=== PATIENT | male | born 1975 | race Caucasian/White ===

== ENCOUNTER 2019-05-02 12:19 | Emergency (ER) | payer OTHER ==
[~2019-05-02] VITALS: Ht 162.6 cm; Wt 84.0 kg
[~2019-05-02 12:19] MED LIST: ACET325T14 PO; AMOX-367 PO; ASPI81TA45 PO; ATOR40TA78 PO; CLOP75TA PO; METO50TA82 PO; OXYC5TAB3 PO
--- NOTE | 2019-05-02 12:50 | NUR ---
RECEIVED BEDSIDE REPROT FROM MAIA CESPEDES
--- NOTE | 2019-05-02 12:50 | NUR ---
43 Y/O MALE BIB AMBULANCE WITH C/O CP. "THE PAIN STARTED AT ABOUT 0930 MY PAIN WAS 1/10. IT WAS RIGHT IN THE CENTER (PT POINTS TO EPIGASTRIC AREA). WHEN I STARTED ON THE TREADMILL AT THE [facility], MY PAIN WENT TO A 4/10. THAT WAS AT 1110. RIGHT NOW MY PAIN IS 1/10. I GOT SOME ASA FROM THE [facility]." PT PLACED ON CONT PULSE OX,NIBP, CPO. NO C/O N/V/D, TRAUMA, SYNCOPE, SOB. HX DOUBLE BYPASS 02/15
--- NOTE | 2019-05-02 12:53 | NUR ---
PER PT "I'VE ALSO HAD A LOT OF OTHER STRESS THIS PAST WEEK." EDPA BEDSIDE.
[2019-05-02 13:27] LABS: BASOPHILS # (AUTO) 0.05 x10^3/uL (0-0.1); BASOPHILS % (AUTO) 1 % (0-1); EOSINOPHILS # (AUTO) 0.13 x10^3/uL (0-0.4); EOSINOPHILS % (AUTO) 2 % (1-7); LYMPHOCYTES # (AUTO) 0.78 x10^3/uL (1-3.4); LYMPHOCYTES % (AUTO) 11 % (22-44); MD NO; MEAN CORPUSCULAR HGB CONC 32.5 g/dL (33.2-36.2); MEAN CORPUSCULAR VOLUME 82.9 fL (81-97); MEAN PLATELET VOLUME 10.1 fL (7.4-10.4); MONOCYTES % (AUTO) 7 % (2-9); NEUTROPHILS # (AUTO) 5.68 x10^3/uL (1.8-6.8); NEUTROPHILS % (AUTO) 80 % (42-75); PLATELET COUNT 244 x10^3/uL (130-400); RED BLOOD COUNT 5.65 x10^6/uL (4.38-5.82)
[2019-05-02 13:35] LABS: ALANINE AMINOTRANSFERASE 36 U/L (12-78); ALBUMIN 3.7 g/dL (3.4-5.0); ANION GAP 5 mmol/L (5-15); CALCIUM 9.2 mg/dL (8.5-10.1); CHLORIDE 108 mmol/L (98-107); CREATININE 0.93 mg/dL (0.7-1.3)
[2019-05-02 13:40] LABS: ALKALINE PHOSPHATASE 86 U/L (45-117); BILIRUBIN,TOTAL 0.3 mg/dL (0.2-1.0); TOTAL PROTEIN 7.4 g/dL (6.4-8.2); TROPONIN I < 0.015 ng/mL (0.000-0.045)
--- NOTE | 2019-05-02 15:05 | NUR ---
LATE ENTRY FOR 1400 PT RESTING ON GURNEY. NO ACUTE DISTRESS NOTED. NO NEEDS REQUESTED AT THIS TIME. BEDSIDE.
[2019-05-02 15:09] VITALS: BP 128/76
--- NOTE | 2019-05-02 15:09 | NUR ---
Patient/Caregiver given discharge instructions and they have confirmed that they understand the instructions. Patient ambulatory with steady gait. PT LEFT WITH ALL PERSONAL BELONGINGS
== END 2019-05-02 15:10 | disposition home or self-care (01) ==
LOC: ED 14:22
DX: R07.89 Other chest pain (principal); I10 Essential (primary) hypertension; E78.5 Hyperlipidemia, unspecified
CPT/HCPCS: 36415; 71045; 80053; 84484; 85025; 93005; 99284

== ENCOUNTER → 2019-05-20 | Outpatient (CLI) | payer OTHER ==
[~2019-05-20] MED LIST changes: +LIDOCAINE-MPF 1%, 5ML ONE
== END | disposition home or self-care (01) ==
LOC: RAD 10:49
PROVIDERS: ATTEND Surgery
DX: E04.1 Nontoxic single thyroid nodule (principal)
CPT/HCPCS: 10005; 88172; 88173

== ENCOUNTER 2019-09-19 12:38 | Outpatient (CLI) | payer OTHER ==
[~2019-09-19 12:38] MED LIST changes: -LIDOCAINE-MPF 1%, 5ML ONE
== END 2019-09-19 23:59 | disposition home or self-care (01) ==
LOC: CFH 12:38
PROVIDERS: ATTEND Nurse Practitioner Family
DX: R07.9 Chest pain, unspecified (principal)
CPT/HCPCS: 78452; 93017; A9502

== ENCOUNTER → 2021-03-21 | Outpatient (CLI) | payer OTHER ==
[~2021-03-21] MED LIST changes: -OXYC5TAB3 PO; +OXYC5TAB98 PO
== END | disposition home or self-care (01) ==
LOC: CFH 15:48
PROVIDERS: ATTEND Internal Medicine Cardiovascular Disease
DX: I37.1 Nonrheumatic pulmonary valve insufficiency (principal); R07.9 Chest pain, unspecified
CPT/HCPCS: 93306